=== PATIENT | female | born 1960 | race Caucasian/White ===

== ENCOUNTER 2017-12-26 07:20 | Inpatient (IN) | payer OTHER ==
[2017-12-26] MEDS: SOD CHLORIDE 0.9% 1,000 ML IV (07:00)
[2017-12-26] MEDS: CEFAZOLIN 2 GM/50 ML (PMX) 50 ML IVPB (07:00)
[2017-12-26 08:44] LABS: ADD MAN DIFF? NO
[2017-12-26 08:47] LABS: BASOPHILS % 0.3 % (0.0-2.0); EOSINOPHILS % 0.1 % (0.0-7.0); HEMATOCRIT 36.5 % (37.0-47.0); HEMOGLOBIN 11.6 g/dl (12.0-16.0); LYMPHOCYTES # 2.1 10^3/ul (0.8-2.9); LYMPHOCYTES % 14.3 % (15.0-51.0); MEAN CORPUSCULAR HEMOGLOBIN 28.1 pg (29.0-33.0); MEAN CORPUSCULAR HGB CONC 31.8 g/dl (32.0-37.0); MEAN CORPUSCULAR VOLUME 88.4 fl (82.0-101.0); MEAN PLATELET VOLUME 11.7 fl (7.4-10.4); MONOCYTE # 0.6 10^3/ul (0.3-0.9); MONOCYTES % 4.1 % (0.0-11.0); NEUTROPHIL # 11.7 10^3/ul (1.6-7.5); NEUTROPHILS % 80.8 % (39.0-77.0); PLATELET COUNT 239 10^3/UL (140-415); RED BLOOD COUNT 4.13 10^6/ul (4.20-5.40); RED CELL DISTRIBUTION WIDTH 12.7 % (11.5-14.5)
[2017-12-26 08:47] LABS: WHITE BLOOD COUNT 14.5 10^3/ul (4.8-10.8)
[2017-12-26 09:09] LABS: ALANINE AMINOTRANSFERASE 27 IU/L (13-69); ALBUMIN 4.8 g/dl (3.3-4.9); ALBUMIN/GLOBULIN RATIO 1.26; ALKALINE PHOSPHATASE 88 IU/L (42-121); ANION GAP 24 (8-16); ASPARTATE AMINO TRANSFERASE 27 IU/L (15-46); BILIRUBIN,INDIRECT 0.1 mg/dl (0-1.1); BILIRUBIN,TOTAL 0.1 mg/dl (0.2-1.3); CARBON DIOXIDE 23 mmol/L (21-31); CHLORIDE 106 mmol/L (97-110); GLUCOSE 63 mg/dl (70-220); TOTAL PROTEIN 8.6 g/dl (6.1-8.1)
[2017-12-26 09:11] LABS: BLOOD UREA NITROGEN 38 mg/dl (7-20); CALCIUM 10.2 mg/dl (8.4-10.2); CREATININE 3.17 mg/dl (0.44-1.00); POTASSIUM 5.5 mmol/L (3.5-5.1); SODIUM 147 mmol/L (135-144)
[2017-12-26 09:22] LABS: INR 0.92; PROTIME 12.4 Sec (11.9-14.9)
[2017-12-26 09:23] LABS: PARTIAL THROMBOPLASTIN TIME 26.9 Sec (25.0-35.0)
[2017-12-26] MEDS ORDERED: MIDAZOLAM 1 MG/ML 2 ML INJ (11:22)
[2017-12-26] MEDS ORDERED: PHENYLephrine (100 MCG/ML) 5ML SYG (11:30)
[2017-12-26] MEDS ORDERED: morphine 10 MG INJ (11:59)
[2017-12-26] MEDS ORDERED: ONDANSETRON 4 MG INJ (12:59)
[2017-12-26] MEDS ORDERED: PROPOFOL 20 ML (13:05)
[2017-12-26] MEDS ORDERED: LIDOCAINE 100 MG SYRINGE (13:05)
[2017-12-26] MEDS ORDERED: GLYCOPYRROLATE 0.4 MG INJ (13:05)
[2017-12-26] MEDS ORDERED: ROCURONIUM 50 MG INJ (13:05)
[2017-12-26] MEDS ORDERED: NEOSTIGMINE 3 MG/3 ML SYRINGE (13:05)
[2017-12-26] MEDS ORDERED: D5W-0.45 NACL + KCL 20 MEQ 1,000 ML IV (13:12)
[2017-12-26] MEDS ORDERED: DEXTROSE 50% 50 ML SYRINGE (13:20)
[2017-12-26] MEDS ORDERED: DEXTROSE 5%-LR 1,000 ML (13:21)
[2017-12-26] MEDS ORDERED: DIPHENHYDRAMINE 50 MG INJ IV (13:30)
[2017-12-26] MEDS ORDERED: ACETAMINOPHEN 1000MG/100ML IV 100 ML IVPB (13:30)
[2017-12-26] MEDS ORDERED: hydrALAzine 20 MG INJ IV (13:30)
[2017-12-26] MEDS ORDERED: ALBUTEROL 0.083% (NEB) 2.5 MG/3 ML AMP HHN (13:30)
[2017-12-26] MEDS ORDERED: HYDROmorphONE (0.2 MG/ML) 10ML SYG IV (13:30)
[2017-12-26] MEDS ORDERED: FENTAnyl 50 MCG/ML VIAL IV (13:30)
[2017-12-26] MEDS: ONDANSETRON 4 MG INJ IV ×2 (13:37→13:38)
[2017-12-26] MEDS: HYDROmorphONE (0.2 MG/ML) 10ML SYG IV ×2 (13:38→13:44)
[2017-12-26] MEDS: LABETALOL HCL 20MG INJ IV (13:39)
[2017-12-26] MEDS: DEXTROSE 50% 50 ML SYRINGE IV (13:40)
[2017-12-26] MEDS: DEXTROSE 5% 1,000 ML IV (13:45)
[2017-12-26] MEDS ORDERED: GLUCAGON 1 MG INJ IM (16:30)
[2017-12-26] MEDS: DEXTROSE 5%-0.45% NACL 1,000 ML IV ×2 (16:30→18:12)
[2017-12-26] MEDS ORDERED: DEXTROSE 50% 50 ML SYRINGE IV ×2 (16:30)
[2017-12-26] MEDS ORDERED: GLUCOSE GEL 15 GRAM TUBE PO ×2 (16:30)
[2017-12-26] MEDS ORDERED: GLUCOSE GEL 15 GRAM TUBE BUCCAL (16:30)
[2017-12-26] MEDS: INSULIN ASPART [NOVOLOG] 3 ML PEN SC ×2 (18:00→21:45)
[2017-12-26] MEDS ORDERED: metFORMIN 500 MG TAB PO (18:00)
[2017-12-26] MEDS: ATORVASTATIN 40 MG TAB PO (20:16)
[2017-12-26] MEDS: INSULIN GLARGINE [LANtus] 3 ML PEN SC ×2 (21:00→21:44)
[2017-12-26] MEDS: HYDROCODONE/APAP (5/325) TAB PO (22:07)
[2017-12-27] MEDS: ONDANSETRON 4 MG INJ IV ×2 (00:48→09:01)
[2017-12-27] MEDS: ACCUCHECK 2 AM XX (02:00)
[2017-12-27] MEDS: ACCU-CHEK XX (02:15)
[2017-12-27] MEDS: DEXTROSE 5%-0.45% NACL 1,000 ML IV ×2 (04:45→08:24)
[2017-12-27] MEDS: PANTOPRAZOLE (EC) 40 MG TAB PO (05:55)
[2017-12-27] MEDS: morphine 2 MG INJ IV ×2 (05:58→17:18)
[2017-12-27 06:11] LABS: SODIUM,URINE RANDOM 89 mmol/L (30-90)
[2017-12-27 06:13] LABS: CREATININE,URINE RANDOM 49.03 mg/dl (20-320); PROTEIN/CREAT RATIO 0.65 RATIO
[2017-12-27 06:29] LABS: CREATINE KINASE 431 IU/L (23-200)
[2017-12-27] MEDS: Insulin NOVOLOG SS MILD Algorithm (SS with meals and bedtime) SC ×4 (08:00→20:45)
[2017-12-27] MEDS ORDERED: INSULIN ASPART [NOVOLOG] 3 ML PEN SC (08:00)
[2017-12-27 08:24] LABS: ADD MAN DIFF? NO
[2017-12-27 08:34] LABS: BASOPHILS % 0.2 % (0.0-2.0); EOSINOPHILS % 0.3 % (0.0-7.0); HEMATOCRIT 29.9 % (37.0-47.0); HEMOGLOBIN 9.3 g/dl (12.0-16.0); LYMPHOCYTES # 1.9 10^3/ul (0.8-2.9); LYMPHOCYTES % 15.7 % (15.0-51.0); MEAN CORPUSCULAR HEMOGLOBIN 28.2 pg (29.0-33.0); MEAN CORPUSCULAR HGB CONC 31.1 g/dl (32.0-37.0); MEAN CORPUSCULAR VOLUME 90.6 fl (82.0-101.0); MEAN PLATELET VOLUME 11.9 fl (7.4-10.4); MONOCYTE # 1.1 10^3/ul (0.3-0.9); MONOCYTES % 9.2 % (0.0-11.0); NEUTROPHIL # 8.8 10^3/ul (1.6-7.5); NEUTROPHILS % 74.3 % (39.0-77.0); PLATELET COUNT 191 10^3/UL (140-415)
[2017-12-27 08:34] LABS: WHITE BLOOD COUNT 11.8 10^3/ul (4.8-10.8)
[2017-12-27] MEDS: BENAZEPRIL 10 MG TAB PO (08:49)
[2017-12-27] MEDS: HYDROCODONE/APAP (5/325) TAB PO ×2 (08:50→16:09)
[2017-12-27] MEDS: CITALOPRAM 20 MG TAB PO (08:53)
[2017-12-27 09:01] LABS: ALANINE AMINOTRANSFERASE 172 IU/L (13-69); ALBUMIN 3.5 g/dl (3.3-4.9); ALBUMIN/GLOBULIN RATIO 1.25; ALKALINE PHOSPHATASE 57 IU/L (42-121); ANION GAP 15 (8-16); ASPARTATE AMINO TRANSFERASE 202 IU/L (15-46); BILIRUBIN,INDIRECT 0.2 mg/dl (0-1.1); BILIRUBIN,TOTAL 0.2 mg/dl (0.2-1.3); BLOOD UREA NITROGEN 35 mg/dl (7-20); CALCIUM 8.1 mg/dl (8.4-10.2); CARBON DIOXIDE 24 mmol/L (21-31); CHLORIDE 108 mmol/L (97-110); GLUCOSE 129 mg/dl (70-220); POTASSIUM 5.3 mmol/L (3.5-5.1); SODIUM 142 mmol/L (135-144); TOTAL PROTEIN 6.3 g/dl (6.1-8.1)
[2017-12-27 12:21] LABS: ADD UMIC YES; UR ASCORBIC ACID NEGATIVE (NEGATIVE); UR BACTERIA FEW /HPF (NONE SEEN); UR BILIRUBIN (Dip) NEGATIVE (NEGATIVE); UR BLOOD (Dip) 2+ mg/dL (NEGATIVE); UR CLARITY CLEAR (CLEAR); UR COLOR STRAW (YELLOW); UR GLUCOSE (Dip) NEGATIVE (NEGATIVE); UR KETONES (Dip) NEGATIVE (NEGATIVE); UR LEUKOCYTE ESTERASE (Dip) TRACE Leu/ul (NEGATIVE); UR NITRITE (Dip) NEGATIVE (NEGATIVE); UR RBC 0 /HPF (0-5); UR SPECIFIC GRAVITY (Dip) 1.005 (1.003-1.030); UR TOTAL PROTEIN (Dip) NEGATIVE (NEGATIVE); UR UROBILINOGEN (Dip) NEGATIVE (NEGATIVE); UR WBC 6 /HPF (0-5)
[2017-12-27] MEDS: LEVOFLOXACIN 500MG/D5W (PMX) 100 ML IVPB (16:43)
[2017-12-27] MEDS: ATORVASTATIN 40 MG TAB PO (20:45)
[2017-12-27] MEDS: INSULIN GLARGINE [LANtus] 3 ML PEN SC (21:22)
[2017-12-28] MEDS: morphine 2 MG INJ IV ×5 (01:38→20:52)
[2017-12-28] MEDS: DEXTROSE 5%-0.45% NACL 1,000 ML IV ×2 (01:41→16:56)
[2017-12-28] MEDS: ACCU-CHEK XX (02:00)
[2017-12-28] MEDS: ACCUCHECK 2 AM XX (02:00)
[2017-12-28] MEDS: HYDROCODONE/APAP (5/325) TAB PO (05:36)
[2017-12-28] MEDS: PANTOPRAZOLE (EC) 40 MG TAB PO (05:36)
[2017-12-28 05:49] LABS: ADD MAN DIFF? NO
[2017-12-28 05:56] LABS: BASOPHILS % 0.2 % (0.0-2.0); EOSINOPHILS # 0.2 10^3/ul (0.0-0.5); EOSINOPHILS % 2.1 % (0.0-7.0); HEMATOCRIT 31.1 % (37.0-47.0); HEMOGLOBIN 9.7 g/dl (12.0-16.0); LYMPHOCYTES # 2.4 10^3/ul (0.8-2.9); LYMPHOCYTES % 20.7 % (15.0-51.0); MEAN CORPUSCULAR HGB CONC 31.2 g/dl (32.0-37.0); MEAN CORPUSCULAR VOLUME 89.9 fl (82.0-101.0); MEAN PLATELET VOLUME 11.9 fl (7.4-10.4); MONOCYTE # 0.8 10^3/ul (0.3-0.9); NEUTROPHILS % 69.7 % (39.0-77.0); PLATELET COUNT 216 10^3/UL (140-415); RED BLOOD COUNT 3.46 10^6/ul (4.20-5.40); RED CELL DISTRIBUTION WIDTH 13.2 % (11.5-14.5)
[2017-12-28 05:56] LABS: WHITE BLOOD COUNT 11.5 10^3/ul (4.8-10.8)
[2017-12-28 06:07] LABS: ALANINE AMINOTRANSFERASE 169 IU/L (13-69); ALBUMIN 3.6 g/dl (3.3-4.9); ALBUMIN/GLOBULIN RATIO 1.16; ALKALINE PHOSPHATASE 66 IU/L (42-121); ANION GAP 12 (8-16); ASPARTATE AMINO TRANSFERASE 167 IU/L (15-46); BILIRUBIN,INDIRECT 0.4 mg/dl (0-1.1); BILIRUBIN,TOTAL 0.4 mg/dl (0.2-1.3); BLOOD UREA NITROGEN 20 mg/dl (7-20); CALCIUM 8.3 mg/dl (8.4-10.2); CARBON DIOXIDE 26 mmol/L (21-31); CHLORIDE 111 mmol/L (97-110); CREATININE 1.53 mg/dl (0.44-1.00); GLUCOSE 80 mg/dl (70-220); POTASSIUM 4.5 mmol/L (3.5-5.1); SODIUM 144 mmol/L (135-144); TOTAL PROTEIN 6.7 g/dl (6.1-8.1)
[2017-12-28] MEDS: Insulin NOVOLOG SS MILD Algorithm (SS with meals and bedtime) SC ×4 (08:00→21:11)
[2017-12-28] MEDS: BENAZEPRIL 10 MG TAB PO (09:20)
[2017-12-28] MEDS: CITALOPRAM 20 MG TAB PO (09:20)
[2017-12-28] MEDS: MAGNESIUM HYDROXIDE 30ML CUP PO ×2 (12:24→21:12)
[2017-12-28] MEDS: ATORVASTATIN 40 MG TAB PO (20:52)
[2017-12-28] MEDS: INSULIN GLARGINE [LANtus] 3 ML PEN SC (21:05)
[2017-12-29] MEDS: morphine 2 MG INJ IV ×3 (01:37→16:01)
[2017-12-29] MEDS: ACCU-CHEK XX (02:00)
[2017-12-29] MEDS: ACCUCHECK 2 AM XX (02:00)
[2017-12-29] MEDS: PANTOPRAZOLE (EC) 40 MG TAB PO (05:24)
[2017-12-29] MEDS: HYDROCODONE/APAP (5/325) TAB PO (05:25)
[2017-12-29] MEDS: DEXTROSE 5%-0.45% NACL 1,000 ML IV (05:25)
[2017-12-29 07:15] LABS: ADD MAN DIFF? NO
[2017-12-29 07:21] LABS: WHITE BLOOD COUNT 9.9 10^3/ul (4.8-10.8)
[2017-12-29 07:21] LABS: BASOPHILS % 0.2 % (0.0-2.0); EOSINOPHILS # 0.1 10^3/ul (0.0-0.5); HEMATOCRIT 29.6 % (37.0-47.0); HEMOGLOBIN 9.4 g/dl (12.0-16.0); LYMPHOCYTES # 1.6 10^3/ul (0.8-2.9); MEAN CORPUSCULAR HGB CONC 31.8 g/dl (32.0-37.0); MEAN CORPUSCULAR VOLUME 88.1 fl (82.0-101.0); MEAN PLATELET VOLUME 12.1 fl (7.4-10.4); MONOCYTE # 0.8 10^3/ul (0.3-0.9); MONOCYTES % 7.6 % (0.0-11.0); NEUTROPHIL # 7.4 10^3/ul (1.6-7.5); NEUTROPHILS % 74.9 % (39.0-77.0); PLATELET COUNT 202 10^3/UL (140-415); RED BLOOD COUNT 3.36 10^6/ul (4.20-5.40); RED CELL DISTRIBUTION WIDTH 12.7 % (11.5-14.5)
[2017-12-29 07:49] LABS: ANION GAP 14 (8-16); BLOOD UREA NITROGEN 14 mg/dl (7-20); CALCIUM 8.4 mg/dl (8.4-10.2); CARBON DIOXIDE 26 mmol/L (21-31); CHLORIDE 105 mmol/L (97-110); CREATININE 1.05 mg/dl (0.44-1.00); GLUCOSE 282 mg/dl (70-220); POTASSIUM 5.1 mmol/L (3.5-5.1); SODIUM 140 mmol/L (135-144)
[2017-12-29] MEDS: Insulin NOVOLOG SS MILD Algorithm (SS with meals and bedtime) SC ×4 (08:14→21:00)
[2017-12-29] MEDS: CITALOPRAM 20 MG TAB PO (08:18)
[2017-12-29] MEDS: BENAZEPRIL 10 MG TAB PO (08:18)
[2017-12-29] MEDS: MINERAL OIL 30ML CUP PO ×2 (12:19→20:58)
[2017-12-29] MEDS: LEVOFLOXACIN 500MG/D5W (PMX) 100 ML IVPB (16:01)
[2017-12-29] MEDS: INSULIN GLARGINE [LANtus] 3 ML PEN SC (20:58)
[2017-12-29] MEDS: ATORVASTATIN 40 MG TAB PO (20:58)
[2017-12-29] MEDS: MAGNESIUM HYDROXIDE 30ML CUP PO (22:46)
[2017-12-30] MEDS: HYDROCODONE/APAP (5/325) TAB PO
[2017-12-30] MEDS: hydrALAzine 20 MG INJ IV (00:06)
[2017-12-30] MEDS: ACCU-CHEK XX (01:31)
[2017-12-30] MEDS: ACCUCHECK 2 AM XX (01:32)
[2017-12-30] MEDS: PANTOPRAZOLE (EC) 40 MG TAB PO (05:43)
[2017-12-30] MEDS: BENAZEPRIL 10 MG TAB PO (08:17)
[2017-12-30] MEDS: MINERAL OIL 30ML CUP PO ×2 (08:17→13:00)
[2017-12-30] MEDS: CITALOPRAM 20 MG TAB PO (08:17)
[2017-12-30] MEDS: Insulin NOVOLOG SS MILD Algorithm (SS with meals and bedtime) SC ×2 (08:20→13:05)
[2017-12-31] MEDS ORDERED: LEVOFLOXACIN 500 MG TAB PO (16:00)
== END 2017-12-30 16:40 | disposition home or self-care (01) | DRG 418 ==
LOC: SDS 07:20 → REC 14:05 → MS2 17:00
PROVIDERS: Surgery Surgical Oncology
PROC: 0FT44ZZ Resection of Gallbladder, Percutaneous Endoscopic Approach (ICD-10-PCS; principal; 2017-12-26 11:00)
DX: K80.10 Calculus of gallbladder with chronic cholecystitis without obstruction (principal); N17.9 Acute kidney failure, unspecified; E87.0 Hyperosmolality and hypernatremia; I12.9 Hypertensive chronic kidney disease with stage 1 through stage 4 chronic kidney disease, or unspecified chronic kidney disease; E11.22 Type 2 diabetes mellitus with diabetic chronic kidney disease; N18.3 Chronic kidney disease, stage 3 (moderate)
CPT/HCPCS: 71045; 76775; 80048; 80053; 81001; 81003; 82550; 82570; 82962; 84300; 84560; 85025; 85610; 85730; 87086; 88304; 89190; 93005; 97116; 97162; 97530